=== PATIENT | female | born 2005 | race Caucasian/White ===

== ENCOUNTER 2023-08-28 03:41 | Emergency (ER) | payer OTHER ==
[~2023-08-28] VITALS: Ht 149.9 cm; Wt 43.2 kg
[2023-08-28 03:47] VITALS: BP 112/65; PULSE 105; RESP 15; TEMP 98.7
== END 2023-08-28 04:29 | disposition home or self-care (01) ==
LOC: EMS 03:45
DX: T65.893A Toxic effect of other specified substances, assault, initial encounter (principal); F10.90 Alcohol use, unspecified, uncomplicated; Y92.89 Other specified places as the place of occurrence of the external cause; Y90.9 Presence of alcohol in blood, level not specified
CPT/HCPCS: 99283; Z7502